=== PATIENT | female | born 1960 | race African-American/Black ===

== ENCOUNTER 2022-12-09 22:55 | Inpatient (IN) | payer MEDICARE, MEDICAID ==
[~2022-12-09] VITALS: Ht 157.5 cm; Wt 88.9 kg
[~2022-12-09 22:55] MED LIST: ALBU90AE INH; ASPI-1497 MT; LEVO-65 MT; NICO-645 TP; P20 PO; TRAM50TA94 MT; TRAZ-251 MT
[2022-12-09] MEDS ORDERED: METHYLPREDNISOLONE SOD SUCC 125 MG/2 ML VIAL IV STA (23:07)
[2022-12-09] MEDS ORDERED: IPRATROPIUM BROMIDE (0.02%) 0.5MG/2.5ML NEB HHN STA (23:07)
[2022-12-09] MEDS ORDERED: ALBUTEROL (0.083%) 2.5MG/3ML NEB HHN STA (23:07)
[2022-12-09 23:30] LABS: BASOPHILS % 0.6 % (0.0-2.0); EOSINOPHILS % 1.3 % (0.0-5.0); HEMATOCRIT. 43.9 % (36.0-48.0); HEMOGLOBIN. 14.9 g/dL (12.0-16.0); LYMPHOCYTES % 51.3 % (20.0-50.0); MEAN CORPUSCULAR HEMOGLOBIN 30.9 pg (28.0-32.0); MEAN CORPUSCULAR VOLUME 91.4 fL (81.0-99.0); MEAN PLATELET VOLUME 8.7 fl (7.4-10.4); MONOCYTES % 4.2 % (2.0-8.0); NEUTROPHILS % 42.6 % (40.0-76.0); PLATELET 247 x1000/uL (130-400); RED BLOOD CELL COUNT 4.81 mill/uL (4.2-5.4); RED CELL DISTRIBUTION WIDTH 14.7 % (11.6-14.6)
[2022-12-09 23:39] LABS: CHLORIDE 108 mEq/L (98-107)
[2022-12-10 02:09] LABS: PROTHROMBIN TIME 10.6 sec (9.6-11.0)
[2022-12-10] MEDS ORDERED: ACETAMINOPHEN 325MG TABLET PO ONE (03:00)
[2022-12-10] MEDS ORDERED: IPRATROPIUM/ALBUTEROL 0.5-3(2.5)MG/3ML NEB HHN PRN (07:15)
[2022-12-10 08:00] VITALS: BP 124/73
[2022-12-10] MEDS ORDERED: ACETAMINOPHEN 325MG TABLET PO PRN ×3 (08:00→10:45)
[2022-12-10] MEDS ORDERED: GUAIFENESIN-DM 200MG-20MG/10ML UDC PO PRN (08:00)
[2022-12-10] MEDS: NALOXONE HCL 0.4MG/ML VIAL IV PRN ×2 (08:26→08:27)
[2022-12-10] MEDS: HYDROCODONE/ACETAMINOPHEN 5/325MG TABLET PO PRN ×3 (08:27→21:20)
[2022-12-10 09:00] VITALS: BP 136/68
[2022-12-10] MEDS: BENZONATATE 100MG CAPSULE PO SCH ×3 (09:39→21:16)
[2022-12-10] MEDS: METHYLPREDNISOLONE SOD SUCC 40 MG/ML VIAL IV SCH ×3 (09:40→23:45)
[2022-12-10] MEDS ORDERED: GUAIFENESIN 200MG/10ML SUGAR FREE UDC PO PRN (10:45)
[2022-12-10] MEDS ORDERED: MAGNESIUM/ALUMINUM HYDROXIDE/SIMETHICONE 30ML UDC PO PRN (10:45)
[2022-12-10] MEDS ORDERED: DOCUSATE SODIUM 100MG CAPSULE PO PRN (10:45)
[2022-12-10] MEDS ORDERED: ONDANSETRON HCL 4MG/2ML INJ IV PRN (10:45)
[2022-12-10] MEDS ORDERED: CLONIDINE 0.1MG TABLET PO PRN (10:45)
[2022-12-10] MEDS: KETOROLAC 15MG/ML VIAL IV PRN ×3 (11:29→23:45)
[2022-12-10] MEDS: ENOXAPARIN 30MG/0.3ML SYR SUBCUT SCH ×2 (11:29→21:16)
[2022-12-10 12:00] VITALS: BP 148/76
[2022-12-10 13:50] LABS: CLARITY URINE CLEAR (CLEAR); COLOR URINE YELLOW (YELLOW); KETONES URINE NEGATIVE (NEGATIVE); LEUKOCYTE ESTERASE URINE TRACE (NEGATIVE); NITRITE URINE NEGATIVE (NEGATIVE); OCCULT BLOOD URINE 2+ (NEGATIVE); PROTEIN URINE NEGATIVE (NEGATIVE); SPECIFIC GRAVITY URINE 1.024 (1.005-1.030); UROBILINOGEN URINE 0.2 E.U./dL (0.2-1.0)
[2022-12-10 14:16] LABS: *AMPHETAMINES SCREEN URINE NEGATIVE (NEGATIVE); *BARBITURATES SCREEN URINE NEGATIVE (NEGATIVE); *BENZODIAZEPINES SCREEN URINE NEGATIVE (NEGATIVE); *COCAINE SCREEN URINE PRESUMTIVE POSITIVE (NEGATIVE); CANNABINOID URINE SCREEN NEGATIVE (NEGATIVE); METHADONE URINE SCREEN NEGATIVE (NEGATIVE); OPIATES URINE SCREEN PRESUMTIVE POSITIVE (NEGATIVE); PHENCYCLIDINE URINE SCREEN NEGATIVE (NEGATIVE)
[2022-12-10] MEDS: IPRATROPIUM/ALBUTEROL 0.5-3(2.5)MG/3ML NEB HHN SCH ×2 (15:37→19:49)
[2022-12-10 16:00] VITALS: BP 141/72
[2022-12-10] MEDS ORDERED: AZITHROMYCIN 500 MG TABLET PO NR (17:00)
[2022-12-10 17:30] LABS: HEPATITIS B SURFACE ANTIGEN NEGATIVE
[2022-12-10] MEDS ORDERED: CEFTRIAXONE 1,000 MG in DEXTROSE 5% WATER 50 ML IV SCH (18:00)
[2022-12-10 20:00] VITALS: BP 137/94
[2022-12-11] VITALS: BP 137/94
[2022-12-11] MEDS: IPRATROPIUM/ALBUTEROL 0.5-3(2.5)MG/3ML NEB HHN SCH ×3 (01:47→14:56)
[2022-12-11 04:00] VITALS: BP 138/70
[2022-12-11] MEDS: BENZONATATE 100MG CAPSULE PO SCH ×2 (05:33→13:41)
[2022-12-11] MEDS: KETOROLAC 15MG/ML VIAL IV PRN ×2 (05:38→13:41)
[2022-12-11 06:39] LABS: BASOPHILS % 0.1 % (0.0-2.0); HEMATOCRIT. 40.5 % (36.0-48.0); HEMOGLOBIN. 13.7 g/dL (12.0-16.0); LYMPHOCYTES % 14.9 % (20.0-50.0); MEAN CORPUSCULAR HEMOGLOBIN 30.7 pg (28.0-32.0); MEAN CORPUSCULAR VOLUME 91.1 fL (81.0-99.0); MONOCYTES % 1.3 % (2.0-8.0); NEUTROPHILS % 83.7 % (40.0-76.0); PLATELET 231 x1000/uL (130-400); RED BLOOD CELL COUNT 4.45 mill/uL (4.2-5.4); RED CELL DISTRIBUTION WIDTH 14.3 % (11.6-14.6)
[2022-12-11 06:44] LABS: CHLORIDE 109 mEq/L (98-107)
[2022-12-11 07:00] LABS: HDL CHOLESTEROL 65 mg/dL (40-59); LDL CHOLESTEROL 81 mg/dL (5-100); T4 FREE 0.87 ng/dL (0.76-1.46)
[2022-12-11 08:00] VITALS: BP 124/60
[2022-12-11] MEDS: METHYLPREDNISOLONE SOD SUCC 40 MG/ML VIAL IV SCH (08:51)
[2022-12-11] MEDS: ENOXAPARIN 30MG/0.3ML SYR SUBCUT SCH (08:51)
[2022-12-11] MEDS ORDERED: AZITHROMYCIN 500 MG TABLET PO SCH (09:00)
[2022-12-11 12:00] VITALS: BP 133/82
[2022-12-11 13:41] VITALS: BP 124/60
[2022-12-11] MEDS ORDERED: PREDNISONE 20MG TABLET PO SCH (17:00)
[2022-12-12] MEDS ORDERED: ENOXAPARIN 40MG/0.4ML SYR SUBCUT SCH (09:00)
== END 2022-12-11 17:34 | disposition left against medical advice (07) | DRG 193 ==
LOC: ER 22:55 → 8WST 12-10 02:58 → ENRESERV 12-10 06:49
PROVIDERS: ADMIT Internal Medicine; ATTEND Internal Medicine
PROC: 5A09357 Assistance with Respiratory Ventilation, Less than 24 Consecutive Hours, Continuous Positive Airway Pressure (ICD-10-PCS; principal; 2022-12-10)
DX: J18.9 Pneumonia, unspecified organism (principal); J96.01 Acute respiratory failure with hypoxia; J44.1 Chronic obstructive pulmonary disease with (acute) exacerbation; N39.0 Urinary tract infection, site not specified; J44.0 Chronic obstructive pulmonary disease with (acute) lower respiratory infection; E66.9 Obesity, unspecified; F17.210 Nicotine dependence, cigarettes, uncomplicated; G43.909 Migraine, unspecified, not intractable, without status migrainosus; F14.10 Cocaine abuse, uncomplicated; Z20.822 Contact with and (suspected) exposure to COVID-19; Z96.652 Presence of left artificial knee joint; Z60.2 Problems related to living alone; Z28.310 Unvaccinated for COVID-19; Z68.36 Body mass index [BMI] 36.0-36.9, adult; Z90.49 Acquired absence of other specified parts of digestive tract; Z79.82 Long term (current) use of aspirin
CPT/HCPCS: 36415; 71045; 80053; 80061; 80305; 81003; 83880; 84439; 84443; 84481; 84484; 85025; 85379; 86803; 87070; 87340; 87426; 93306; 94640; 94660; 99291; C1893; J0696; J1650; J1885; J2920; J2930; J7060

== ENCOUNTER 2024-10-27 20:38 | Emergency (ER) | payer MEDICAID, OTHER ==
[~2024-10-27] VITALS: Ht 157.5 cm; Wt 88.0 kg
[~2024-10-27 20:38] MED LIST changes: -LEVO-65 MT; -P20 PO; -TRAM50TA94 MT
[2024-10-27] MEDS: LIDOCAINE HCL/PF 1% 10 MG/ML 5ML VIAL INFIL ONE (21:15)
[2024-10-27] MEDS: BACITRACIN ZINC OINT UDPKT TOP ONE (21:50)
[2024-10-27] MEDS: IBUPROFEN 600MG TABLET PO ONE (21:50)
[2024-10-27] MEDS: TETANUS, DIPHTHERIA, PERTUSSIS VAC/PF 0.5ML (>10YR OLD) IM ONE (21:53)
[2024-10-27 22:04] VITALS: PULSE 69; RESP 17; O2SAT 97
[2024-10-27] MEDS: ALBUTEROL (0.083%) 2.5MG/3ML NEB HHN ONE (22:13)
[2024-10-27] MEDS: DIPHENHYDRAMINE 50MG/ML VIAL IM ONE (22:20)
[2024-10-27] MEDS: PREDNISONE 20MG TABLET PO ONE (22:26)
[2024-10-27] MEDS ORDERED: P50 MT (22:52)
[2024-10-27] MEDS ORDERED: ALBU2.5V13 NEB (22:52)
[2024-10-27] MEDS ORDERED: ALBU18HF2 IH (22:52)
[2024-10-27] MEDS ORDERED: PERM60CR4 TP (22:59)
[2024-10-27 23:27] VITALS: BP 130/84; PULSE 66; RESP 14; TEMP 37; O2SAT 100
[2024-10-27] MEDS ORDERED: BO1 TP (23:29)
== END 2024-10-27 23:29 | disposition home or self-care (01) ==
LOC: ER 20:38
DX: S61.211A Laceration without foreign body of left index finger without damage to nail, initial encounter (principal); J44.1 Chronic obstructive pulmonary disease with (acute) exacerbation; L29.9 Pruritus, unspecified; Z79.899 Other long term (current) drug therapy; X58.XXXA Exposure to other specified factors, initial encounter; Y93.89 Activity, other specified; Y92.89 Other specified places as the place of occurrence of the external cause; Y99.8 Other external cause status
CPT/HCPCS: 90715; 94640; 98960; 12001; 90471; 96372; 99284; J7512; J1200; J2003; Z7610; 94070

== ENCOUNTER 2024-12-01 06:23 | Emergency (ER) | payer MEDICAID, OTHER ==
[~2024-12-01] VITALS: Ht 157.5 cm; Wt 87.4 kg
[~2024-12-01 06:23] MED LIST changes: +ALBU18HF2 IH; +ALBU2.5V13 NEB; +BO1 TP; +P50 MT; +PERM60CR4 TP
[2024-12-01 06:38] VITALS: O2SAT 97
[2024-12-01] MEDS ORDERED: PETR85OI TP (07:41)
[2024-12-01] MEDS ORDERED: OFLO5DRO4 EACH EAR (07:41)
[2024-12-01 07:54] VITALS: BP 132/85; PULSE 69; RESP 15; TEMP 36.6; O2SAT 97
== END 2024-12-01 07:56 | disposition home or self-care (01) ==
LOC: ER 06:23
DX: H60.8X3 Other otitis externa, bilateral (principal); L29.2 Pruritus vulvae; Z79.82 Long term (current) use of aspirin; Z79.899 Other long term (current) drug therapy
CPT/HCPCS: 99283

== ENCOUNTER 2025-02-19 18:12 | Emergency (ER) | payer MEDICARE, MEDICAID ==
[~2025-02-19] VITALS: Ht 157.5 cm; Wt 87.0 kg
[~2025-02-19 18:12] MED LIST changes: +OFLO5DRO4 EACH EAR; +PETR85OI TP
[2025-02-19 18:18] VITALS: BP 132/87; RESP 20; TEMP 37; O2SAT 97
[2025-02-19 18:24] VITALS: PULSE 103; O2SAT 98
[2025-02-19 19:49] LABS: BASOPHILS % 1.1 % (0.0-2.0); EOSINOPHILS % 2.4 % (0.0-5.0); HEMATOCRIT. 42.4 % (36.0-48.0); HEMOGLOBIN. 14.3 g/dL (12.0-16.0); LYMPHOCYTES % 48.7 % (20.0-50.0); MEAN PLATELET VOLUME 8.5 fl (7.4-10.4); MONOCYTES % 5.5 % (2.0-8.0); NEUTROPHILS % 42.3 % (40.0-76.0); PLATELET 225 x1000/uL (130-400); RED BLOOD CELL COUNT 4.69 mill/uL (4.2-5.4); RED CELL DISTRIBUTION WIDTH 14.3 % (11.6-14.6)
[2025-02-19 19:59] LABS: CREATININE 1.1 mg/dL (0.6-1.0); TROPONIN I HIGH SENSITIVITY 4 ng/L (3.0-34); UREA NITROGEN BLOOD 15 mg/dL (9-23)
[2025-02-19] MEDS: CETIRIZINE 10MG TABLET PO STA (20:10)
[2025-02-19] MEDS ORDERED: P20 MT (20:44)
[2025-02-19] MEDS ORDERED: CEPH500C2 MT (20:44)
== END 2025-02-19 21:58 | disposition home or self-care (01) ==
LOC: ER 18:12
DX: L30.9 Dermatitis, unspecified (principal); R06.02 Shortness of breath; Z79.899 Other long term (current) drug therapy
CPT/HCPCS: 36415; 71045; 80048; 84484; 85025; 93005; 99285